=== PATIENT | female | born 1965 | race Caucasian/White ===

== ENCOUNTER 2019-05-12 14:30 | Emergency (ER) | payer OTHER ==
[2019-05-12] MEDS ORDERED: Ketorolac 60 MG/2 ML SDV IM ONE (14:49)
--- NOTE | 2019-05-12 14:49 | EDM.PDOC ---
ED HPI GENERAL MEDICAL PROBLEM - General Chief Complaint: Back Pain or Injury Stated Complaint: BACK PAIN Time Seen by Provider: 05/12/19 14:45 Source of Information: Reports: Patient History Limitations: Reports: No Limitations - History of Present Illness INITIAL COMMENTS - FREE TEXT/NARRATIVE: HISTORY AND PHYSICAL: History of present illness: Patient is a 54-year-old female who presents to the emergency room with complaints of lumbar back pain on the left that radiates into her hip. She states that on Tuesday she was performing activities while at work when her back started to "spasm" and it felt tight. She states over the past several days her pain has increased and is not alleviated with Tylenol or ibuprofen over -the-counter. Yesterday she did go to the chiropractor who attempted to do an adjustment. She was informed that she likely has a "aggravated disc". She denies any injury, trauma or falls. She denies any urinary or fecal incontinence. Denies any numbness, tingling or saddle paresthesias. She is ambulatory although has pain with movement. Patient denies any fever, chills, headache, change in vision, syncope or near syncope. Denies any chest pain, shortness of breath or cough. Denies any GI or symptoms. Has not noted any blood in urine or stool. Patient has been eating and drinking appropriately. Review of systems: As per history of present illness and below otherwise all systems reviewed and negative. Past medical history: As per history of present illness and as reviewed below otherwise noncontributory. Surgical history: As per history of present illness and as reviewed below otherwise noncontributory. Social history: See social history for further information Family history: As per history of present illness and as reviewed below otherwise noncontributory. Physical exam: General: Well-developed and well-nourished 54-year-old female. Alert and oriented. Nontoxic appearing and in no acute distress. HEENT: Atraumatic, normocephalic, pupils equal and reactive bilaterally, negative for conjunctival pallor or scleral icterus, mucous membranes moist, trachea midline. No drooling or trismus noted. No meningeal signs. No hot potato voice noted. Lungs: Clear to auscultation, breath sounds equal bilaterally, chest nontender. Heart: S1S2, regular rate and rhythm without overt murmur Abdomen: Soft, nondistended, nontender. Negative for masses. Negative for costovertebral tenderness. Pelvis: Stable nontender. Genitourinary: Deferred. Rectal: Deferred. C-spine/Back: No pinpoint vertebral tenderness upon palpation. No crepitus, step -offs or obvious deformities. She denies any urinary or fecal incontinence. Denies any numbness, tingling or saddle paresthesias. She does have paraspinous muscular tenderness to the left low lumbar region extending into the left posterior hip. Skin: Intact, warm, dry. No lesions or rashes noted. Extremities: Atraumatic, moves all extremities per self without difficulty or deficits, limited range of motion involving the trunk or bending/flexion at the waist. Neurovascular unremarkable. Neuro: Awake, alert, oriented. Cranial nerves II through XII unremarkable. Cerebellum unremarkable. Motor and sensory unremarkable throughout. Exam nonfocal. Notes: Hip/Pelvis X-ray shows probable chronic irregularity of the lateral ischium just inferior to the level of the acetabulum. Degenerative changes noted of the lumbar spine. No acute fractures or subluxation noted. She did find moderate relief with the IM injections. Supportive care measures were reviewed and discussed. Voices understanding and is agreeable to plan of care. Denies any further questions or concerns at this time. Diagnostics: Lumbar spine x-ray, left hip Therapeutics: [employer] Toradol Prescription: Flexeril (#21) Tramadol (#20) Impression: Sciatic back pain, left Plan: 1. The medication he received as an injection today does cause drowsiness so do not drive for the remaining day 2. When resting please lay on a flat firm surface. Limit your immobility to prevent muscle stiffness, get up to ambulate/move around/gentle stretching multiple times throughout the day. May alternate heat and ice to the painful areas 3. Tylenol and/or Ibuprofen as needed for back pain. Tramadol as needed for pain. Flexeril as a muscle relaxant, this medication may cause drowsiness a do not take it will driving her needing to be functioning outside of the house. Do not take the Flexeril and tramadol together as both do cause drowsiness. He'll need to alternate these medications as we discussed. 4. Please follow-up with your primary care provider as we discussed. Return to the ED as needed and as discussed. Definitive disposition and diagnosis as appropriate pending reevaluation and review of above. Lower Back Pain Score (Numeric/FACES): 9 - Related Data Allergies Allergy/AdvReac Type Severity Reaction Status Date / Time acetaminophen [From [place]] Allergy Nausea and Verified 05/12/19 14:41 Vomiting codeine Allergy Nausea and Verified 05/12/19 14:41 Vomiting hydrocodone [From [place]] Allergy Nausea and Verified 05/12/19 14:41 Vomiting Home Meds: Home Meds . 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 ED EXAM,LOWER BACK PAIN/INJURY - Physical Exam Exam: See Below (See dictation) Course - Vital Signs Last Recorded V/S: Last Vital Signs Temp 97.4 F 05/12/19 14:39 Pulse 83 05/12/19 14:39 Resp 20 05/12/19 14:39 BP 147/87 H 05/12/19 15:13 Pulse Ox 93 L 05/12/19 14:39 - Orders/Labs/Meds Orders: Active Orders 24 hr Category Date Time Status Hip Min 1V w Pelvis Lt [CR] Stat Exams 05/12/19 14:49 Taken Lumbar Spine 2 or 3V [CR] Stat Exams 05/12/19 14:49 Taken Meds: Medications Discontinued Medications Generic Name Dose Route Start Last Admin Trade Name Freq PRN Reason Stop Dose Admin Ketorolac Tromethamine 60 mg 05/12/19 14:49 05/12/19 15:12 Toradol IM 05/12/19 14:50 60 mg ONETIME ONE Administration Orphenadrine Citrate 60 mg 05/12/19 14:49 05/12/19 15:12 Norflex IM 05/12/19 14:50 60 mg NOW STA Administration Departure - Departure Time of Disposition: 15:45 Disposition: Home, Self-Care 01 Clinical Impression: Sciatica Qualifiers: Laterality: left Qualified Code(s): M54.32 - Sciatica, left side - Discharge Information Instructions: Sciatica Referrals: PCP,None [Primary Care Provider] - Forms: ED Department Discharge Additional Instructions: The following information is given to patients seen in the emergency department who are being discharged to home. This information is to outline your options for follow-up care. We provide all patients seen in our emergency department with a follow-up referral. The need for follow-up, as well as the timing and circumstances, are variable depending upon the specifics of your emergency department visit. If you don't have a primary care physician on staff, we will provide you with a referral. We always advise you to contact your personal physician following an emergency department visit to inform them of the circumstance of the visit and for follow-up with them and/or the need for any referrals to a consulting specialist. The emergency department will also refer you to a specialist when appropriate. This referral assures that you have the opportunity for follow-up care with a specialist. All of these measure are taken in an effort to provide you with optimal care, which includes your follow-up. Under all circumstances we always encourage you to contact your private physician who remains a resource for coordinating your care. When calling for follow-up care, please make the office aware that this follow-up is from your recent emergency room visit. If for any reason you are refused follow-up, please contact the [facility] Emergency Department at and asked to speak to the emergency department charge nurse. [facility] [address] [place] [address] [id number] [facility] [address] [place] [id number] 1. The medication he received as an injection today does cause drowsiness so do not drive for the remaining day 2. When resting please lay on a flat firm surface. Limit your immobility to prevent muscle stiffness, get up to ambulate/move around/gentle stretching multiple times throughout the day. May alternate heat and ice to the painful areas 3. Tylenol and/or Ibuprofen as needed for back pain. Tramadol as needed for pain. Flexeril as a muscle relaxant, this medication may cause drowsiness a do not take it will driving her needing to be functioning outside of the house. Do not take the Flexeril and tramadol together as both do cause drowsiness. You'll need to alternate these medications as we discussed. 4. Please follow-up with your primary care provider as we discussed. Return to the ED as needed and as discussed. - My Orders Last 24 Hours: My Active Orders 05/12/19 14:49 Hip Min 1V w Pelvis Lt [CR] Stat Lumbar Spine 2 or 3V [CR] Stat - Assessment/Plan Last 24 Hours: My Active Orders 05/12/19 14:49 Hip Min 1V w Pelvis Lt [CR] Stat Lumbar Spine 2 or 3V [CR] Stat
--- NOTE | 2019-05-12 15:46 | CR ---
Indication: Pain. Technique: Two views of the lumbar spine were obtained. Comparison: None Findings: The alignment of the lumbar spine is within normal limits. The vertebral body heights are well maintained. Intervertebral disc space narrowing is identified throughout. Facet joint arthropathy of the lumbar spine is identified. No acute fracture or subluxation is identified. Impression: Degenerative change. Dictated by Ayanna Cates MD @ May 12 2019 3:42PM Signed by Dr. Ayanna Cates @ May 12 2019 3:43PM
--- NOTE | 2019-05-12 15:46 | CR ---
Indication: Pain. Technique: An AP view of the pelvis and frogleg view of the left hip were obtained. Comparison: None Findings: Both femoral heads are seated within the acetabula. Irregularity of the lateral aspect of the left ischium is identified just inferior to the level of the acetabulum. This appears to be a chronic process. However, the exact etiology is uncertain. No definite acute fracture or subluxation is identified. Degenerative changes of the lower lumbar spine is identified. Impression: Probable chronic irregularity of the lateral ischium just inferior to the level of the acetabulum. Dictated by Ayanna Cates MD @ May 12 2019 3:41PM Signed by Dr. Ayanna Cates @ May 12 2019 3:42PM
== END 2019-05-12 16:19 | disposition home or self-care (01) ==
LOC: MW.ED 14:30
DX: M54.42 Lumbago with sciatica, left side (principal); F17.210 Nicotine dependence, cigarettes, uncomplicated; Z88.5 Allergy status to narcotic agent
CPT/HCPCS: 72100; 73501; 96372; 99283; J1885; J2360